=== PATIENT | female | born 1985 | race Caucasian/White ===

== ENCOUNTER 2019-08-02 08:14 | Outpatient (CLI) | payer OTHER, SELFPAY ==
--- NOTE | 2019-08-10 15:52 | WPDPFTINT ---
PFT Interpretation PFT Interpretation: DOS: 08/02/2019 REQUESTING: MARYAM Ken REASON FOR TESTING: Cough, shortness of breath PULMONARY FUNCTION TESTS Spirometry: Normal FEV1 81%, normal FVC, normal FEV1%, normal [id number]%. No change with bronchodilator. Lung volumes: Total lung capacity is 82%, normal. Normal RV. No air trapping. Airway resistance is minimally elevated 131%. Low ERV which is consistent with elevated BMI. Diffusion: DLCO 46%, moderately decreased. Flow volume loop: Normal. IMPRESSION: Normal spirometry and lung volumes. There is an isolated moderate decrease in diffusion. Decreased diffusion with normal spirometry and lung volumes can be seen in anemia, early interstitial lung disease, and pulmonary vascular diseases due to conditions including chronic pulmonary emboli, pulmonary arterial hypertension and pulmonary vascular involvement with rheumatic diseases. Diffusion is the least reliable portion of a pulmonary function test. Clinical correlation is recommended. Alexandra Stroud MD
== END 2019-08-02 08:15 | disposition home or self-care (01) ==
LOC: ANHPFT 08:17
PROVIDERS: PCP Family Medicine; Visit Provider Physician Assistant
DX: R06.02 Shortness of breath (principal); R05 Cough
CPT/HCPCS: 94060; 94726; 94729

== ENCOUNTER 2021-01-15 11:34 | Outpatient (CLI) | payer BC, SELFPAY ==
--- NOTE | ~2021-01-15 | XR_ITS ---
XR foot LT min 3V DATE: 01/15/2021 11:47 INDICATION: Open wound lateral plantar fifth metatarsal area TECHNIQUE: 4 views COMPARISON: None FINDINGS: Plantar and posterior calcaneal enthesopathy. No fracture, dislocation, periosteal reaction or bone destruction. No opaque soft tissue foreign body or subcutaneous emphysema is noted. IMPRESSION: Calcaneal enthesopathy Reviewed, dictated and finalized at location A. IMPRESSION: Calcaneal enthesopathy
== END 2021-01-15 11:35 | disposition home or self-care (01) ==
LOC: ANHIMG 11:37
PROVIDERS: PCP Family Medicine; Visit Provider Physician Assistant
DX: S91.302A Unspecified open wound, left foot, initial encounter (principal); X58.XXXA Exposure to other specified factors, initial encounter; M77.32 Calcaneal spur, left foot
CPT/HCPCS: 73630